=== PATIENT | male | born 1970 | race African-American/Black ===

== ENCOUNTER 2018-01-04 15:51 | Emergency (ER) | payer MEDICARE, OTHER ==
[~2018-01-04] VITALS: Ht 172.7 cm; Wt 99.8 kg
[~2018-01-04 15:51] MED LIST: CARV12.52 PO; LANT500T3 PO; LISI10TA2 PO; SIMV20TA3 PO; TAMS0.4C2 PO; [UNRECOGNIZED DRUG - CODE] PO
[2018-01-04 16:20] VITALS: BP 129/69
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
== END 2018-01-04 17:04 | disposition home or self-care (01) ==
LOC: ER 15:51
DX: S39.012A Strain of muscle, fascia and tendon of lower back, initial encounter (principal); Z88.5 Allergy status to narcotic agent; V43.52XA Car driver injured in collision with other type car in traffic accident, initial encounter; Y93.89 Activity, other specified; Y92.410 Unspecified street and highway as the place of occurrence of the external cause; Y99.8 Other external cause status
CPT/HCPCS: 99282